=== PATIENT | female | born 1975 | race Caucasian/White ===

== ENCOUNTER 2018-05-27 09:41 | Emergency (ER) | payer OTHER ==
[~2018-05-27] VITALS: Ht 167.6 cm; Wt 72.6 kg
[~2018-05-27 09:41] MED LIST: MTR600X PO; PRENTAB26 PO
[2018-05-27 09:45] VITALS: BP 130/81; PULSE 80; TEMP 36.6; O2SAT 94; Ht 167.6 cm; Wt 72.6 kg
[2018-05-27] MEDS ORDERED: LIDOCAINE 1% BUFFERED INJ 20 ML VIAL INFIL STA (09:52)
[2018-05-27] MEDS ORDERED: LIDOCAINE 1% BUFFERED INJ 20 ML VIAL ONE (09:54)
--- NOTE | 2018-05-27 09:56 | EMERGENCY ROOM VISIT NOTE ---
ED Visit Note First contact with patient: 09:52 Chief Complaint: "Right hand laceration". History of Present Illness: This patient is a 43-year-old female who presents to the Emergency Department via private vehicle for evaluation of their right hand laceration. Patient sustained the laceration while doing dishes, when a piece of glass broke and cut the palmar surface of her right first digit just proximal to the MCP joint.. They report a moderate amount of bleeding initially. They deny any numbness or tingling into the distal extremity. Patient rates her current discomfort as a 3/10. Patient's Tetanus status is believed to be currently up-to-date. Medications: As noted below Allergies: None PMH: No pertinent SHx: Patient lives locally ROS: All pertinent positive and negative review of systems are appropriately documented in the History of Present Illness. Physical Exam: VITAL SIGNS - Vital signs and nursing notes were reviewed. Stable GENERAL -43-year-old female appearing her stated age who is in no acute distress. Communicates well with provider and answers questions appropriately. SKIN - There is a 3 cm long laceration noted palmar surface of the patient's right first digit just proximal to that of the MCP joint. The edges gape apart with traction. No foreign bodies appreciated. Upon further examination there are no deep structures including vessel, tendon, or bony structures appreciated. There is no active bleeding noted. MUSCULOSKELETAL -full range of motion of the right hand assessed. NEUROLOGIC - Spinothalamic tract was found to be intact with ability to discriminate sharp versus dull sensation. No sensory defects of the dorsal column were appreciated utilizing light touch for evaluation. She was neurovascularly intact distal to that of a laceration. VASCULAR - Capillary refill was brisk. ED Course: Patient was seen and evaluated by myself. Risks and benefits of performing primary wound closure versus no repair were discussed with the patient who verbalizes understanding. Verbal consent was obtained prior to performing the procedure. Four cc of 1% buffered lidocaine without epinephrine was used to anesthetize the 3 cm laceration. The wound was cleansed and prepped in the typical sterile fashion utilizing normal saline and Betadine. The wound was sterilely draped. Once proper anesthetization was established, the wound was further examined and demonstrated no deep involvement. The wound was copiously irrigated with normal saline and Betadine. The wound was closed using 5 simple, 5-0 nylon sutures with the wound edges being well approximated. Patient tolerated the procedure well. No complications were met. The wound was cleansed and dressed with a Bacitracin dressing. Patient educated on worrisome symptoms for return visit to the Emergency Department. Patient discharged to home in good condition. Current/Historical Medications Scheduled Multivit/Min/Iron/Fol Ac/Pren ( Vitamin), 1 TAB PO DAILY Allergies Coded Allergies: No Known Allergies (Unverified , 05/27/18) Vital Signs Date Time Temp Pulse Resp B/P (MAP) Pulse Ox O2 Delivery O2 Flow Rate FiO2 05/27/18 09:45 36.6 80 18 130/81 94 Room Air Medications Administered Medications (Trade) Dose Ordered Sig/Oneyda Route Start Time Stop Time Status Last Admin Dose Admin Lidocaine HCl (Buffered Lidocaine 1% Inj) 5 ml STK-MED ONCE .ROUTE 05/27/18 09:54 05/27/18 09:55 DC 05/27/18 09:54 5 ML Departure Information Impression Primary Impression: Laceration Dispostion Home / Self-Care Condition GOOD Referrals Julia Morrison M.D. (PCP) Patient Instructions My [facility] Additional Instructions You have received sutures on your Right thumb. These sutures are NOT dissolvable and WILL need to be removed by a health care provider in 12-14 days. You can return to the Emergency Department or contact your Primary Care Provider to have the sutures removed. Proper wound care is essential for adequate wound healing and infection prevention. You can shower and clean the wound with soap and water. Do not scour over the wound, pat dry with a towel. Do not submerse the wound (i.e. bathe or dish wash) until the sutures have been removed. You can use an antibiotic ointment with a dressing over the wound for the next 3-4 days. After this time you may leave the wound dry and open to the air. If crust develops over the wound you can use a Q-tip to apply a 1:1 peroxide:water solution to clean the wound. Look for signs of infection of the wound including: increased pain, swelling, foul discharge, streaking, or increased temperature. If any of these are noticed you should return to the Emergency Department for further assessment and treatment. As with any laceration you may have received nerve damage to the surrounding tissues. This damage may or may not be permanent. You should keep the area covered with sunscreen for the first 6 months to 1 year when at risk for exposure to help minimize scarring. For pain control, you can use the following [id number] medicines (if >12 yo): - Regular strength (325mg/tab) Tylenol (acetaminophen) 2 tabs every 4-6 hours as needed. Do not exceed 12 tablets in a 24 hour period. Avoid taking more than 3 grams (3000 mg) of Tylenol per day. This includes any other sources of acetaminophen you may take on a regular basis. - Regular strength (200 mg/tab) Advil (ibuprofen) 1-2 tabs every 4-6 hours as needed. Do not exceed a dose of 3200 mg per day. Return to the emergency department if your symptoms worsen despite treatment course outlined above.
== END 2018-05-27 10:37 | disposition home or self-care (01) ==
LOC: C.EDB 09:42 → C.EDD 10:37
DX: S61.411A Laceration without foreign body of right hand, initial encounter (principal); W25.XXXA Contact with sharp glass, initial encounter